=== PATIENT | male | born 1965 | race Two or more races ===

== ENCOUNTER 2024-12-21 15:30 | Emergency (ER) | payer OTHER ==
[~2024-12-21] VITALS: Ht 180.3 cm; Wt 83.9 kg
[2024-12-21] MEDS ORDERED: MOUNJARO2.5 MG/0.5 (15:47)
[2024-12-21] MEDS ORDERED: SYNJARDY 12.5-1 EACH (15:47)
[2024-12-21] MEDS ORDERED: GLIMEPIRIDE4 MG (15:48)
[2024-12-21] MEDS ORDERED: SINGULAIR4 M1 (15:49)
[2024-12-21] MEDS ORDERED: WELLBUTRIN XL300 MG (15:49)
[2024-12-21] MEDS ORDERED: CRESTOR40 MG (15:49)
[2024-12-21] MEDS ORDERED: CLONAZEPAM2 M1 (15:49)
[2024-12-21] MEDS ORDERED: OXYCONTIN20 M1 (15:50)
[2024-12-21 15:52] VITALS: BP 145/67; O2SAT 99
[2024-12-21] MEDS ORDERED: FAMOTIDINE/PF 20 MG in 0.9 % SODIUM CHLORIDE 8 ML IV PUSH STA (16:08)
[2024-12-21] MEDS ORDERED: METOCLOPRAMIDE HCL IV ONE (16:15)
[2024-12-21] MEDS ORDERED: 0.9 % SODIUM CHLORIDE 1,000 ML IV SCH (16:15)
[2024-12-21] MEDS ORDERED: KETOROLAC TROMETHAMINE 15 MG VIAL IV ONE (16:15)
[2024-12-21] MEDS ORDERED: SODIUM CHLORIDE 0.9% IV ONE (16:15)
[2024-12-21] MEDS ORDERED: KETOROLAC TROMETHAMINE 30 MG VIAL ONE (16:38)
[2024-12-21] MEDS ORDERED: FAMOTIDINE/PF 20 MG/2 ML VIAL ONE (16:39)
[2024-12-21] MEDS ORDERED: METOCLOPRAMIDE HCL 5 MG/ML VIAL ONE (16:39)
[2024-12-21 17:15] LABS: BASO % 0.4 % (0.1-1.2); EOS # 0.05 (0.04-0.54); EOS % 0.5 % (0.7-7.0); HEMATOCRIT 46.2 % (40.1-51.0); LYMPH # 2.55 (1.18-3.74); LYMPH % 23.9 % (19.3-53.1); MEAN CORPUSCULAR HEMOGLOBIN 26.6 pg (25.6-32.2); MONO # 1.52 (0.24-0.82); NEUT # 6.49 (1.56-6.13); NEUT % 60.6 % (34.0-71.1); PLATELET COUNT 206 K/uL (163-369); RED BLOOD COUNT 5.64 M/uL (4.63-6.08); RED CELL DISTRIBUTION WIDTH 14.1 % (11.6-14.4)
[2024-12-21 17:18] LABS: MONO % 14.2 % (4.7-12.5)
[2024-12-21 17:38] LABS: ALBUMIN 3.6 gm/dL (3.4-5.0); BILIRUBIN TOTAL 0.83 mg/dL (0.3-1.2); BILIRUBIN,CONJUGATED 0.25 mg/dL (0.0-0.2); BILIRUBIN,UNCONJUGATED 0.58 mg/dL (0.0-0.6); CREATININE SERUM 1.34 mg/dL (0.70-1.30); GFR 54.19; GLOBULINA 4.7 G/DL (2.4-3.5); POTASSIUM 3.85 mEq/L (3.5-5.1); TOTAL PROTEIN 8.3 gm/dL (6.4-8.2)
[2024-12-21] MEDS ORDERED: PEPCID AC20 MG PO (18:53)
== END 2024-12-21 19:02 | disposition home or self-care (01) ==
LOC: ER 17:20
PROVIDERS: General Practice
DX: K29.60 Other gastritis without bleeding (principal); E11.9 Type 2 diabetes mellitus without complications; Z79.84 Long term (current) use of oral hypoglycemic drugs
CPT/HCPCS: 36415; 96365; 99283; J1885; J3490